=== PATIENT | female | born 1955 | race Caucasian/White ===

== ENCOUNTER 2017-05-14 18:36 | Observation (INO) | payer OTHER ==
[~2017-05-14] VITALS: Ht 152.4 cm; Wt 75.0 kg
[~2017-05-14 18:36] MED LIST: CALC1TAB26 PO; LORA0.5T PO; TAB-TAB PO
[2017-05-14 18:44] VITALS: BP 153/70; PULSE 74; RESP 18; TEMP 98; O2SAT 99
--- NOTE | 2017-05-14 18:44 | PD ---
HPI Chief Complaint: Pre-Syncopal symptoms. Time Seen by Provider: 18:40 Travel History International Travel<30 days: No Contact w/Intl Traveler<30days: No History of Present Illness HPI Patient is a 62-year-old female presents emergency department for evaluation of what her son describes as presyncopal like symptoms. Denies approximately an hour prior to presentation she was sitting down to dinner with her son when she suddenly states she had a warm feeling in her epigastric region no shortness of breath no chest pain and discomfort in by an episode of diaphoresis and her eyes fluttered and she very nearly if not didn't pass out. Her son who is an ER nurse here stated that he thought she might of had a TIA but did not see any focalized weakness in his mother. He states that by the time they arrived here she is doing better. Extensive family history of heart disease but none in this patient, has history of high blood pressure cholesterol but does not smoke. Symptoms started approximately an hour prior to arrival and/or resolved. PFSH Past Medical History Heart Rhythm Problems: No Cancer: Yes (R BREAST CA, BRAC +, JENSEN MASTECTOMY) Cardiac Catheterization: No Cardiovascular Problems: No High Cholesterol: No Congestive Heart Failure: No Diabetes: No Endocrine: No Genitourinary: No Hepatitis: No Hiatal Hernia: Yes Hypertension: No Immune Disorder: No Musculoskeletal: No Neurologic: No Psychiatric: No Reproductive: No Respiratory: Yes (HX OF ASTHMA (CHILD & ADOLES) ) Myocardial Infarction: No Thyroid Disease: No Menopausal: Yes Past Surgical History Abdominal Surgery: No AICD: No Body Medical Devices: R BREAST IMPLANT Cardiac Surgery: No Coronary Artery Bypass Graft: No Ear Surgery: No Endocrine Surgery: No Eye Surgery: No Genitourinary Surgery: No Gynecologic Surgery: Yes (BILATERAL SALPINO OPHORECTOMY ) Joint Replacement: No Oral Surgery: Yes (TONSILLECTOMY) Pacemaker: No Thoracic Surgery: Yes (BILATERAL MASTECTOMIES 2008, JENSEN BREAST RECON) Other Surgery: Yes (BUNIONECTOMY;BILAT MASTECTOMY) Social History Alcohol Use: No Tobacco Use: Yes (1/2 TO 1 PPD) Substance Use: No Allergies-Medications (Allergen,Severity, Reaction): Coded Allergies: No Known Allergies (Verified , 05/14/17) Reported Meds & Prescriptions Reported Meds & Active Scripts Active Reported Lorazepam 0.5 Mg Tab 0.5 Mg PO HSPRN Multivitamin (Multivitamins) 1 Tab Tab 1 Tab PO DAILY Calcium 600+D3 (Calcium Carbonate-Vitamin D) 1 Tab Tab 1 Tab PO BID Review of Systems Except as stated in HPI: all other systems reviewed are Neg Physical Exam Narrative GENERAL: Well-developed well-nourished in no obvious distress SKIN: Focused skin assessment warm/dry. HEAD: Atraumatic. Normocephalic. EYES: Pupils equal and round. No scleral icterus. No injection or drainage. ENT: No nasal bleeding or discharge. Mucous membranes pink and moist. NECK: Trachea midline. No JVD. CARDIOVASCULAR: Regular rate and rhythm. No murmur appreciated. 2+ bilateral equal pulses in all 4 extremity's. RESPIRATORY: No accessory muscle use. Clear to auscultation. Breath sounds equal bilaterally. GASTROINTESTINAL: Abdomen soft, non-tender, nondistended. Hepatic and splenic margins not palpable. MUSCULOSKELETAL: No obvious deformities. No clubbing. No cyanosis. No edema. NEUROLOGICAL: Awake and alert and oriented, cranial nerves II through XII are grossly intact and nonfocal, 5 out of 5 strength in all 4 extremities. No pronator drift. No slurred speech. PSYCHIATRIC: Appropriate mood and affect; insight and judgment normal. Data Data Last Documented VS Vital Signs Date Time Temp Pulse Resp B/P (MAP) Pulse Ox O2 Delivery O2 Flow Rate FiO2 05/14/17 19:20 71 18 133/69 (90) 98 Room Air 05/14/17 18:44 98.0 Orders Orders Electrocardiogram (05/14/17 18:40) Complete Blood Count With Diff (05/14/17 18:40) Comprehensive Metabolic Panel (05/14/17 18:40) Magnesium (Mg) (05/14/17 18:40) Ckmb (Isoenzyme) Profile (05/14/17 18:40) Troponin I (05/14/17 18:40) Act Partial Throm Time (Ptt) (05/14/17 18:40) Prothrombin Time / Inr (Pt) (05/14/17 18:40) Urinalysis - C+S If Indicated (05/14/17 18:40) Chest, Single Ap (05/14/17 18:40) Ct Brain W/O Iv Contrast(Rout) (05/14/17 18:40) Ecg Monitoring (05/14/17 18:40) Iv Access Insert/Monitor (05/14/17 18:40) Oximetry (05/14/17 18:40) Sodium Chloride 0.9% Flush (Ns Flush) (05/14/17 18:45) Ct Pulmonary Angiogram (05/14/17 19:31) Urine Culture (05/14/17 19:01) Iohexol 350 Inj (Omnipaque 350 Inj) (05/14/17 20:23) Labs Laboratory Tests Test 05/14/17 18:46 05/14/17 19:01 White Blood Count 11.8 TH/MM3 Red Blood Count 4.80 MIL/MM3 Hemoglobin 13.9 GM/DL Hematocrit 41.6 % Mean Corpuscular Volume 86.7 FL Mean Corpuscular Hemoglobin 28.9 PG Mean Corpuscular Hemoglobin Concent 33.3 % Red Cell Distribution Width 14.2 % Platelet Count 283 TH/MM3 Mean Platelet Volume 8.7 FL Neutrophils (%) (Auto) 54.3 % Lymphocytes (%) (Auto) 39.2 % Monocytes (%) (Auto) 4.2 % Eosinophils (%) (Auto) 1.8 % Basophils (%) (Auto) 0.5 % Neutrophils # (Auto) 6.4 TH/MM3 Lymphocytes # (Auto) 4.6 TH/MM3 Monocytes # (Auto) 0.5 TH/MM3 Eosinophils # (Auto) 0.2 TH/MM3 Basophils # (Auto) 0.1 TH/MM3 CBC Comment DIFF FINAL Differential Comment Prothrombin Time 11.1 SEC Prothromb Time International Ratio 1.0 RATIO Activated Partial Thromboplast Time 25.8 SEC Blood Urea Nitrogen 12 MG/DL Creatinine 1.08 MG/DL Random Glucose 193 MG/DL Total Protein 6.8 GM/DL Albumin 3.6 GM/DL Calcium Level 9.1 MG/DL Magnesium Level 1.8 MG/DL Alkaline Phosphatase 81 U/L Aspartate Amino Transf (AST/SGOT) 12 U/L Alanine Aminotransferase (ALT/SGPT) 20 U/L Total Bilirubin 0.3 MG/DL Sodium Level 136 MEQ/L Potassium Level 3.6 MEQ/L Chloride Level 101 MEQ/L Carbon Dioxide Level 25.2 MEQ/L Anion Gap 10 MEQ/L Estimat Glomerular Filtration Rate 52 ML/MIN Total Creatine Kinase 49 U/L Troponin I LESS THAN 0.02 NG/ML Urine Color YELLOW Urine Turbidity HAZY Urine pH 6.0 Urine Specific [place] 1.023 Urine Protein TRACE mg/dL Urine Glucose (UA) NEG mg/dL Urine Ketones NEG mg/dL Urine Occult Blood NEG Urine Nitrite NEG Urine Bilirubin NEG Urine Urobilinogen 2.0 MG/DL Urine Leukocyte Esterase SMALL Urine RBC 4 /hpf Urine WBC 9 /hpf Urine Squamous Epithelial Cells 4 /hpf Urine Amorphous Sediment RARE Urine Bacteria OCC /hpf Urine Hyaline Casts 13 /lpf Urine Mucus MOD /lpf Microscopic Urinalysis Comment CULTURE INDICATED MDM Medical Decision Making Medical Screen Exam Complete: Yes Emergency Medical Condition: Yes Differential Diagnosis Syncopal episode, TIA seems unlikely, lecture led abnormality, ACS, CA. Narrative Course Patient roomed at the end of my shift, at 1900 the patient was discussed with Dr. Mahoney my relief who will follow-up the workup and disposition the patient properly. Diagnosis Primary Impression: Near syncope Alexei Mcmanus MD May 14, 2017 18:44
[2017-05-14] MEDS ORDERED: SODIUM CHLORIDE 0.9% FLUSH 10 ML FLUSH IVF PRN (18:45)
[2017-05-14 18:51] VITALS: O2SAT 98
--- NOTE | 2017-05-14 19:08 | RADRPT ---
EXAM DATE/TIME: 05/14/2017 18:42 [facility] COMPARISON: CHEST PA & LAT, January 01, 2013, 11:13. INDICATIONS : Palpitations. MEDICAL HISTORY : Carcinoma, breast. Hiatal hernia. SURGICAL HISTORY : Mastectomy, bilateral. ENCOUNTER: Initial ACUITY: 1 day PAIN SCORE: 0/10 LOCATION: Bilateral chest FINDINGS: Portable AP view of the chest demonstrates a normal-sized cardiac silhouette. No effusion, consolidat ion, or pneumothorax is identified. Left breast shadow is absent. Multiple clips overlie the right ax illa. Bones and soft tissues demonstrate no acute finding. CONCLUSION: No acute cardiopulmonary abnormality is identified. King Yoo MD on May 14, 2017 at 19:06 Board Certified Radiologist. This report was verified electronically.
[2017-05-14 19:15] LABS: AUTOMATED NEUTROPHIL # 6.4 TH/MM3 (1.8-7.7); BASOPHIL # 0.1 TH/MM3 (0-0.2); BASOPHIL % 0.5 % (0.0-2.0); EOSINOPHIL # 0.2 TH/MM3 (0-0.4); EOSINOPHIL % 1.8 % (0.0-4.0); HEMATOCRIT 41.6 % (35.0-46.0); HEMO FLAGS DIFF FINAL; LYMPH % 39.2 % (9.0-44.0); LYMPHOCYTE # 4.6 TH/MM3 (1.0-4.8); MEAN CELL VOLUME 86.7 FL (80.0-100.0); MEAN CORPUSCULAR HEMOGLOBIN 28.9 PG (27.0-34.0); MEAN CORPUSCULAR HGB CONC 33.3 % (32.0-36.0); MONO % 4.2 % (0.0-8.0); NEUT % 54.3 % (16.0-70.0); PLATELET COUNT 283 TH/MM3 (150-450); RED CELL DISTRIBUTION WIDTH 14.2 % (11.6-17.2); WHITE BLOOD COUNT 11.8 TH/MM3 (4.0-11.0)
[2017-05-14 19:20] VITALS: BP 133/69; PULSE 71; RESP 18; O2SAT 98
--- NOTE | 2017-05-14 19:30 | PD ---
Physical Exam Date Seen by Provider: May 14, 2017 Narrative GENERAL: SKIN: Warm and dry. HEAD: Atraumatic. Normocephalic. EYES: Pupils equal and round. No scleral icterus. No injection or drainage. ENT: No nasal bleeding or discharge. Mucous membranes pink and moist. NECK: Trachea midline. No JVD. CARDIOVASCULAR: Regular rate and rhythm. RESPIRATORY: No accessory muscle use. Clear to auscultation. Breath sounds equal bilaterally. GASTROINTESTINAL: Abdomen soft, non-tender, nondistended. MUSCULOSKELETAL: Extremities without clubbing, cyanosis, or edema. No obvious deformities. NEUROLOGICAL: Awake and alert. No obvious cranial nerve deficits. Motor grossly within normal limits. Five out of 5 muscle strength in the arms and legs. Normal speech. PSYCHIATRIC: Appropriate mood and affect; insight and judgment normal. Data Data Last Documented VS Vital Signs Date Time Temp Pulse Resp B/P (MAP) Pulse Ox O2 Delivery O2 Flow Rate FiO2 05/14/17 20:37 65 18 126/69 (88) 97 Room Air 05/14/17 18:44 98.0 Orders Orders Electrocardiogram (05/14/17 18:40) Complete Blood Count With Diff (05/14/17 18:40) Comprehensive Metabolic Panel (05/14/17 18:40) Magnesium (Mg) (05/14/17 18:40) Ckmb (Isoenzyme) Profile (05/14/17 18:40) Troponin I (05/14/17 18:40) Act Partial Throm Time (Ptt) (05/14/17 18:40) Prothrombin Time / Inr (Pt) (05/14/17 18:40) Urinalysis - C+S If Indicated (05/14/17 18:40) Chest, Single Ap (05/14/17 18:40) Ct Brain W/O Iv Contrast(Rout) (05/14/17 18:40) Ecg Monitoring (05/14/17 18:40) Iv Access Insert/Monitor (05/14/17 18:40) Oximetry (05/14/17 18:40) Sodium Chloride 0.9% Flush (Ns Flush) (05/14/17 18:45) Ct Pulmonary Angiogram (05/14/17 19:31) Urine Culture (05/14/17 19:01) Iohexol 350 Inj (Omnipaque 350 Inj) (05/14/17 20:23) Labs Laboratory Tests Test 05/14/17 18:46 05/14/17 19:01 White Blood Count 11.8 TH/MM3 Red Blood Count 4.80 MIL/MM3 Hemoglobin 13.9 GM/DL Hematocrit 41.6 % Mean Corpuscular Volume 86.7 FL Mean Corpuscular Hemoglobin 28.9 PG Mean Corpuscular Hemoglobin Concent 33.3 % Red Cell Distribution Width 14.2 % Platelet Count 283 TH/MM3 Mean Platelet Volume 8.7 FL Neutrophils (%) (Auto) 54.3 % Lymphocytes (%) (Auto) 39.2 % Monocytes (%) (Auto) 4.2 % Eosinophils (%) (Auto) 1.8 % Basophils (%) (Auto) 0.5 % Neutrophils # (Auto) 6.4 TH/MM3 Lymphocytes # (Auto) 4.6 TH/MM3 Monocytes # (Auto) 0.5 TH/MM3 Eosinophils # (Auto) 0.2 TH/MM3 Basophils # (Auto) 0.1 TH/MM3 CBC Comment DIFF FINAL Differential Comment Prothrombin Time 11.1 SEC Prothromb Time International Ratio 1.0 RATIO Activated Partial Thromboplast Time 25.8 SEC Blood Urea Nitrogen 12 MG/DL Creatinine 1.08 MG/DL Random Glucose 193 MG/DL Total Protein 6.8 GM/DL Albumin 3.6 GM/DL Calcium Level 9.1 MG/DL Magnesium Level 1.8 MG/DL Alkaline Phosphatase 81 U/L Aspartate Amino Transf (AST/SGOT) 12 U/L Alanine Aminotransferase (ALT/SGPT) 20 U/L Total Bilirubin 0.3 MG/DL Sodium Level 136 MEQ/L Potassium Level 3.6 MEQ/L Chloride Level 101 MEQ/L Carbon Dioxide Level 25.2 MEQ/L Anion Gap 10 MEQ/L Estimat Glomerular Filtration Rate 52 ML/MIN Total Creatine Kinase 49 U/L Troponin I LESS THAN 0.02 NG/ML Urine Color YELLOW Urine Turbidity HAZY Urine pH 6.0 Urine Specific [place] 1.023 Urine Protein TRACE mg/dL Urine Glucose (UA) NEG mg/dL Urine Ketones NEG mg/dL Urine Occult Blood NEG Urine Nitrite NEG Urine Bilirubin NEG Urine Urobilinogen 2.0 MG/DL Urine Leukocyte Esterase SMALL Urine RBC 4 /hpf Urine WBC 9 /hpf Urine Squamous Epithelial Cells 4 /hpf Urine Amorphous Sediment RARE Urine Bacteria OCC /hpf Urine Hyaline Casts 13 /lpf Urine Mucus MOD /lpf Microscopic Urinalysis Comment CULTURE INDICATED MDM Medical Record Reviewed: Yes Supervised Visit with [facility]: No Interpretation(s) nsr, 75, nl intervals, no stemi pattern, however some leads showed low voltage but no eletrical alternans. for sake of completeness will perform ct chest r/o pe vs pericardial effusion Differential Diagnosis near syncope v tia v pe v pericardial effusion v nonstemi v stemi Narrative Course ct chest neg for pe or pericardial effusion, ct head shows a lucency on skull bone, will share with admitting service Diagnosis Primary Impression: Near syncope Additional Impression: r/o atypical mi Admitting Information Admitting Physician Requests: Bautista Roth MD May 14, 2017 19:30
[2017-05-14 19:31] LABS: BACTERIA, URINE OCC /hpf; BLOOD, URINE NEG (NEG); COMMENT (UR) CULTURE INDICATED; CULTURE IF INDICATED CULTURE INDICATED; GLUCOSE,URINE NEG (NEG); HYALINE CAST, URINE 13 /lpf (RARE); KETONE, URINE NEG (NEG); MUCUS URINE MOD /lpf (OCC); NITRITE,URINE NEG (NEG); SQUAMOUS EPITHELIAL CELL URINE 4 /hpf (0-5); URINE COLOR YELLOW (YELLW/STRAW)
[2017-05-14 19:34] LABS: ANION GAP 10 MEQ/L (5-15); AST (GOT) 12 U/L (15-37); BICARBONATE 25.2 MEQ/L (21.0-32.0); BLOOD UREA NITROGEN 12 MG/DL (7-18); CHLORIDE 101 MEQ/L (98-107); GLOMERULAR FILTRATION RATE 52 ML/MIN (>89); MAGNESIUM 1.8 MG/DL (1.5-2.5); POTASSIUM 3.6 MEQ/L (3.5-5.1); SODIUM (NA) 136 MEQ/L (136-145)
[2017-05-14 19:35] LABS: APTT (PATIENT) 25.8 SEC (24.3-30.1); PROTHROMBIN TIME - PATIENT 11.1 SEC (9.8-11.6)
[2017-05-14 19:36] LABS: ALT (GPT) 20 U/L (10-53)
[2017-05-14 19:39] LABS: ALKALINE PHOSPHATASE 81 U/L (45-117); TOTAL BILIRUBIN ADULT 0.3 MG/DL (0.2-1.0)
[2017-05-14 19:45] LABS: CREATINE KINASE 49 U/L (26-192)
[2017-05-14] MEDS ORDERED: IOHEXOL 350 MG/ML 10 ML VIAL (for RAD DIAG) IVCONTRAST ONE (20:23)
--- NOTE | 2017-05-14 20:25 | RADRPT ---
EXAM DATE/TIME: 05/14/2017 20:14 [facility] COMPARISON: No previous studies available for comparison. INDICATIONS : Dizziness. RADIATION DOSE: 48.92 CTDIvol (mGy) MEDICAL HISTORY : Carcinoma, breast. SURGICAL HISTORY : Mastectomy, bilateral. ENCOUNTER: Initial ACUITY: 1 day PAIN SCALE: 0/10 LOCATION: Bilateral head TECHNIQUE: Multiple contiguous axial images were obtained of the head. Using automated exposure control and adj ustment of the mA and/or kV according to patient size, radiation dose was kept as low as reasonably a chievable to obtain optimal diagnostic quality images. DICOM format image data is available electro nically for review and comparison. FINDINGS: CEREBRUM: The ventricles are normal. No evidence of midline shift, mass lesion, hemorrhage or acute infarction . No extra-axial fluid collections are seen. POSTERIOR FOSSA: The cerebellum and brainstem demonstrate no acute finding. The 4th ventricle is midline. The cerebe llopontine angle is unremarkable. EXTRACRANIAL: Visualized sinuses are clear. SKULL: There is a 15 mm lucent lesion in the right parietal bone at the high convexity. No other bone lesion is seen. No evidence of skull fracture. CONCLUSION: 1. No acute intracranial abnormality is identified. 2. There is a 15 mm lucent lesion in the right parietal bone at the high convexity. No other bone les ion is visualized. Suggest correlating with any outside imaging studies echo confirm chronicity of th is finding. If none are available, suggest outpatient elective whole-body bone scan for further evalu ation. It is possible this represents a benign process such as a large venous chew but it could repre sent a metastatic lesion given history of breast cancer or even myeloma. King Yoo MD on May 14, 2017 at 20:19 Board Certified Radiologist. This report was verified electronically.
[2017-05-14 20:37] VITALS: BP 126/69; PULSE 65; RESP 18; O2SAT 97
--- NOTE | 2017-05-14 20:37 | RADRPT ---
EXAM DATE/TIME: 05/14/2017 20:19 [facility] COMPARISON: No previous studies available for comparison. INDICATIONS : Shortness of breath. IV CONTRAST: 74 cc Omnipaque 350 (iohexol) IV RADIATION DOSE: 23.09 CTDIvol (mGy) MEDICAL HISTORY : Carcinoma, breast. SURGICAL HISTORY : Mastectomy, bilateral. ENCOUNTER: Initial ACUITY: 1 day PAIN SCALE: 0/10 LOCATION: Bilateral chest TECHNIQUE: Volumetric scanning of the chest was performed using a pulmonary embolism protocol MIP images were re constructed. Using automated exposure control and adjustment of the mA and/or kV according to patien t size, radiation dose was kept as low as reasonably achievable to obtain optimal diagnostic quality images. DICOM format image data is available electronically for review and comparison. Follow-up recommendations for detected pulmonary nodules are based at a minimum on nodule size and pa tient risk factors according to Fleischner Society Guidelines. FINDINGS: There is respiratory motion artifact. PULMONARY ARTERIES: No filling defects are seen in the pulmonary arteries through most of the segmental level pulmonary a rteries. LUNGS: There is a mild to moderate centrilobular emphysema. Focal area of cylindrical bronchiectasis is pres ent in the medial right lower lobe. No effusion, consolidation, or pneumothorax. PLEURAE: There is no pleural thickening or pleural effusion. MEDIASTINUM: Heart and great vessels demonstrate no acute finding. There is moderate atherosclerotic disease of th e aorta. There are small hilar lymph nodes bilaterally that are not enlarged by size criteria. MUSCULOSKELETAL: There are degenerative changes of the thoracic spine. No lytic or blastic lesion is seen. MISCELLANEOUS: A unilateral right breast implant is present. Patient is post left mastectomy. There is no axillary l ymphadenopathy. There numerable surgical clips in the right axilla. There is an exophytic nodule vers us inferior extension of the right lobe of the thyroid gland. A 7 and 8 mm low-density lesion is pres ent within the right lobe of the liver. Density measurements are not consistent with cysts. CONCLUSION: 1. Examination quality degraded by respiratory motion artifact. However, no PE is identified. 2. There are 2 low-density lesions in the right liver that are too small to characterize. Prior CT re ported liver lesions. 3. Nonacute findings include moderate emphysema and moderate atherosclerotic disease. King Yoo MD on May 14, 2017 at 20:30 Board Certified Radiologist. This report was verified electronically.
[2017-05-14 22:57] VITALS: BP 125/74; PULSE 88; RESP 18; O2SAT 99
[2017-05-15] VITALS (10 sets, daily range): BP systolic 118–150; BP diastolic 55–80; PULSE 61–80; RESP 16–18; TEMP 97.6–98.1; O2SAT 96–97
[2017-05-15] MEDS ORDERED: SODIUM CHLOR 0.9% 1000 ML INJ 1,000 ML IV SCH (00:15)
[2017-05-15] MEDS ORDERED: ONDANSETRON HCL 4 MG/2 ML VIAL IVP PRN (00:15)
[2017-05-15] MEDS ORDERED: TEMAZEPAM 15 MG CAP PO PRN (00:15)
[2017-05-15] MEDS ORDERED: ACETAMINOPHEN 325 MG TAB PO PRN (00:15)
[2017-05-15] MEDS ORDERED: NALOXONE HCL 0.4 MG/ML AMP IV PUSH PRN (00:15)
[2017-05-15] MEDS ORDERED: SODIUM CHLORIDE 0.9% FLUSH 10 ML FLUSH IV FLUSH PRN (00:15)
--- NOTE | 2017-05-15 03:59 | HHI.HP ---
HPI Service [facility] Primary Care Physician Ria Valerio MD Admission Diagnosis NEARSYNCOPE, R/O ATYPICAL [place], SKULL LUCENCY Diagnoses: Chief Complaint: Near syncope Travel History International Travel<30 Days: No Contact w/Intl Traveler <30 Da: No Traveled to Known Affected Are: No History of Present Illness Patient seen around 1 AM. Pleasant 62-year-old female with a medical history significant for breast cancer brought into the emergency room after near syncopal episode. The patient and her son reports the sat down on a bench for dinner. The bench almost tipped over which startled them. A few minutes later the patient started having a burning feeling in the epigastric region and became diaphoretic , nauseous, nearly passed out. Her son is a nurse in the emergency room. He did not notice any focal neurological deficits at the time. By the time the patient arrived in the emergency room, she was feeling better. On my evaluation , she reports feeling back to her baseline. Workup so far in the emergency room indicate some renal insufficiency and the head CT showed a lucency in the parietal region. Otherwise workup is unremarkable. Review of Systems Constitutional: DENIES: Fever, Chills Respiratory: DENIES: Shortness of breath Cardiovascular: DENIES: Chest pain, Palpitations Gastrointestinal: COMPLAINS OF: Nausea Except as stated in HPI: all other systems reviewed are Neg Past Family Social History Past Medical History Breast cancer status post bilateral mastectomy Past Surgical History Bilateral mastectomy Breast implant Salpingo-oophorectomy Reported Medications Reported Meds & Active Scripts Active Reported Lorazepam 0.5 Mg Tab 0.5 Mg PO HSPRN Multivitamin (Multivitamins) 1 Tab Tab 1 Tab PO DAILY Calcium 600+D3 (Calcium Carbonate-Vitamin D) 1 Tab Tab 1 Tab PO BID Allergies: Coded Allergies: No Known Allergies (Verified , 05/14/17) Family History 2 older brothers from [place] in the 50s. Mother with history of heart attacks Sister with history of breast cancer Social History Patient is a lifelong smoker, 1 pack per day. Occasional alcohol, she denies illicit drugs. Physical Exam Vital Signs Vital Signs Date Time Temp Pulse Resp B/P (MAP) Pulse Ox O2 Delivery O2 Flow Rate FiO2 05/15/17 01:32 97.8 65 18 130/78 (95) 97 05/15/17 00:59 05/14/17 22:57 88 18 125/74 (91) 99 Room Air 05/14/17 20:37 65 18 126/69 (88) 97 Room Air 05/14/17 19:20 71 18 133/69 (90) 98 Room Air 05/14/17 18:51 98 Room Air 05/14/17 18:51 81 18 98 Room Air 05/14/17 18:44 98.0 74 18 153/70 (97) 99 Physical Exam GENERAL: This is a well-nourished, well-developed patient, in no apparent distress. SKIN: No rashes, ecchymoses or lesions. Cool and dry. HEAD: Atraumatic. Normocephalic. No temporal or scalp tenderness. EYES: Pupils equal round and reactive. Extraocular motions intact. No scleral icterus. No injection or drainage. ENT: Nose without bleeding, purulent drainage or septal hematoma. Throat without erythema, tonsillar hypertrophy or exudate. Uvula midline. Airway patent. NECK: Trachea midline. No JVD or lymphadenopathy. Supple, nontender, no meningeal signs. CARDIOVASCULAR: Regular rate and rhythm without murmurs, gallops, or rubs. RESPIRATORY: Clear to auscultation. Breath sounds equal bilaterally. No wheezes , rales, or rhonchi. GASTROINTESTINAL: Abdomen soft, non-tender, nondistended. No hepato-splenomegaly , or palpable masses. No guarding. MUSCULOSKELETAL: Extremities without clubbing, cyanosis, or edema. No joint tenderness, effusion, or edema noted. No calf tenderness. Negative Homans sign bilaterally. NEUROLOGICAL: Awake and alert. Cranial nerves II through XII intact. Motor and sensory grossly within normal limits. Five out of 5 muscle strength in all muscle groups. Normal speech. Laboratory Laboratory Tests Test 05/14/17 18:46 05/14/17 19:01 05/15/17 01:16 White Blood Count 11.8 Red Blood Count 4.80 Hemoglobin 13.9 Hematocrit 41.6 Mean Corpuscular Volume 86.7 Mean Corpuscular Hemoglobin 28.9 Mean Corpuscular Hemoglobin Concent 33.3 Red Cell Distribution Width 14.2 Platelet Count 283 Mean Platelet Volume 8.7 Neutrophils (%) (Auto) 54.3 Lymphocytes (%) (Auto) 39.2 Monocytes (%) (Auto) 4.2 Eosinophils (%) (Auto) 1.8 Basophils (%) (Auto) 0.5 Neutrophils # (Auto) 6.4 Lymphocytes # (Auto) 4.6 Monocytes # (Auto) 0.5 Eosinophils # (Auto) 0.2 Basophils # (Auto) 0.1 CBC Comment DIFF FINAL Differential Comment Prothrombin Time 11.1 Prothromb Time International Ratio 1.0 Activated Partial Thromboplast Time 25.8 Blood Urea Nitrogen 12 Creatinine 1.08 Random Glucose 193 Total Protein 6.8 Albumin 3.6 Calcium Level 9.1 Magnesium Level 1.8 Alkaline Phosphatase 81 Aspartate Amino Transf (AST/SGOT) 12 Alanine Aminotransferase (ALT/SGPT) 20 Total Bilirubin 0.3 Sodium Level 136 Potassium Level 3.6 Chloride Level 101 Carbon Dioxide Level 25.2 Anion Gap 10 Estimat Glomerular Filtration Rate 52 Total Creatine Kinase 49 Troponin I LESS THAN 0.02 LESS THAN 0.02 Urine Color YELLOW Urine Turbidity HAZY Urine pH 6.0 Urine Specific [place] 1.023 Urine Protein TRACE Urine Glucose (UA) NEG Urine Ketones NEG Urine Occult Blood NEG Urine Nitrite NEG Urine Bilirubin NEG Urine Urobilinogen 2.0 Urine Leukocyte Esterase SMALL Urine RBC 4 Urine WBC 9 Urine Squamous Epithelial Cells 4 Urine Amorphous Sediment RARE Urine Bacteria OCC Urine Hyaline Casts 13 Urine Mucus MOD Microscopic Urinalysis Comment CULTURE INDICATED Date/Time Source Procedure Growth Status 05/14/17 19:01 Urine Random Urine Urine Culture Pending Received Result Diagram: 05/14/17184505/14/171845 Imaging Last Impressions CT Angiography 05/14/17 193 Signed Impressions: Service Date/Time: Sunday, May 14, 2017 20:19 - CONCLUSION: 1. Examination quality degraded by respiratory motion artifact. However, no PE is identified. 2. There are 2 low-density lesions in the right liver that are too small to characterize. Prior CT reported liver lesions. 3. Nonacute findings include moderate emphysema and moderate atherosclerotic disease. King Yoo MD Head CT 05/14/17 1840 Signed Impressions: Service Date/Time: Sunday, May 14, 2017 20:14 - CONCLUSION: 1. No acute intracranial abnormality is identified. 2. There is a 15 mm lucent lesion in the right parietal bone at the high convexity. No other bone lesion is visualized. Suggest correlating with any outside imaging studies echo confirm chronicity of this finding. If none are available, suggest outpatient elective whole-body bone scan for further evaluation. It is possible this represents a benign process such as a large venous chew but it could represent a metastatic lesion given history of breast cancer or even myeloma. King Yoo MD Chest X-Ray 05/14/17 1840 Signed Impressions: Service Date/Time: Sunday, May 14, 2017 18:42 - CONCLUSION: No acute cardiopulmonary abnormality is identified. MD Kole Jefferson VTE Risk Assessment Caprinrajan VTE Risk Assessment: No/Low Risk (score <= 1) Caprini Risk Assessment Model Point Value = 1 Point Value = 2 Point Value = 3 Point Value = 5 Age 41-60 Minor surgery BMI > 25 kg/m2 Swollen legs Varicose veins or History of unexplained or recurrent spontaneous Oral contraceptives or hormone replacement Sepsis (< 1 month) Serious lung disease, including pneumonia (< 1 month) Abnormal pulmonary function Acute myocardial infarction Congestive heart failure (< 1 month) History of inflammatory bowel disease Medical patient at bed rest Age 61-74 Arthroscopic surgery Major open surgery (> 45 min) Laparoscopic surgery (> 45 min) Malignancy Confined to bed (> 72 hours) Immobilizing plaster cast Central venous access Age >= 75 History of VTE Family history of VTE Factor V Leiden Prothrombin [id number] Lupus anticoagulant Anticardiolipin antibodies Elevated serum homocysteine Heparin-induced thrombocytopenia Other congenital or acquired thrombophilia Stroke (< 1 month) Elective arthroplasty Hip, pelvis, or leg fracture Acute spinal cord injury (< 1 month) Prophylaxis Regimen Total Risk Factor Score Risk Level Prophylaxis Regimen 0-1 Low Early ambulation 2 Moderate Order ONE of the following: *Sequential Compression Device (SCD) *Heparin 5000 units SQ BID 3-4 Higher Order ONE of the following medications: *Heparin 5000 units SQ TID *Enoxaparin/Lovenox 40 mg SQ daily (WT < 150 kg, CrCl > 30 mL/min) *Enoxaparin/Lovenox 30 mg SQ daily (WT < 150 kg, CrCl > 10-29 mL/min) *Enoxaparin/Lovenox 30 mg SQ BID (WT < 150 kg, CrCl > 30 mL/min) AND/OR *Sequential Compression Device (SCD) 5 or more Highest Order ONE of the following medications: *Heparin 5000 units SQ TID (Preferred with Epidurals) *Enoxaparin/Lovenox 40 mg SQ daily (WT < 150 kg, CrCl > 30 mL/min) *Enoxaparin/Lovenox 30 mg SQ daily (WT < 150 kg, CrCl > 10-29 mL/min) *Enoxaparin/Lovenox 30 mg SQ BID (WT < 150 kg, CrCl > 30 mL/min) AND *Sequential Compression Device (SCD) Assessment and Plan Problem List: (1) Near syncope ICD Code: R55 - Syncope and collapse Status: Acute Plan: I believe this was more of a vasovagal event. She is a smoker and does have a significant family history of heart disease. Given the lack of symptoms , will do a limited workup Obtain serial cardiac enzymes and EKG. Monitor on telemetry for arrhythmias. - Hydrated with IV fluid. Encourage oral intake. - Obtain orthostatic vital signs. (2) Abnormal CT scan of head ICD Code: R93.0 - Abnormal findings on diagnostic imaging of skull and head, not elsewhere classified Plan: Head CT revealed a 15 mm lucent lesion in the right parietal bone at the high convexity. Patient does not recall any previous abnormality on head imaging. I discussed this finding at length with the patient and her son. Given her history of breast cancer I advised him to follow-up with the oncologist and primary care physician in order to obtain further studies such as whole body bone scan or PET scan to rule out metastatic disease. (3) Tobacco abuse ICD Code: Z72.0 - Tobacco use Plan: The patient was counseled to quit. Assessment and Plan If workup unremarkable, the patient can be discharge in the morning. Discussed Condition With Stuart Girard MD May 15, 2017 03:59
[2017-05-15 08:52] LABS: ANION GAP 6 MEQ/L (5-15); BICARBONATE 28.3 MEQ/L (21.0-32.0); BLOOD UREA NITROGEN 10 MG/DL (7-18); CHLORIDE 108 MEQ/L (98-107); GLOMERULAR FILTRATION RATE 96 ML/MIN (>89); POTASSIUM 3.8 MEQ/L (3.5-5.1); SODIUM (NA) 142 MEQ/L (136-145)
[2017-05-15] MEDS: SODIUM CHLORIDE 0.9% FLUSH 10 ML FLUSH IV FLUSH SCH ×2 (09:20→20:22)
--- NOTE | 2017-05-15 12:07 | HHI.PR ---
Subjective Remarks Follow up for syncope. The patient reports feeling much better today. She denies any lightheadedness, dizziness, headache, visual changes, chest pain, palpitations, or shortness of breath. She does admit over the past few months she has noticed some imbalance issues, worse with position changes such as sitting down on a chair or turning corners when walking. She thought this was just because she was getting older after turning 62. She has adjusted her lifestyle including slow transition changes to cope with her symptoms. She has no other medical complaints at this time. Objective Vitals Vital Signs Date Time Temp Pulse Resp B/P (MAP) Pulse Ox O2 Delivery O2 Flow Rate FiO2 05/15/17 08:08 98.0 61 16 118/55 (76) 97 05/15/17 05:59 63 05/15/17 01:32 97.8 65 18 130/78 (95) 97 05/15/17 00:59 05/14/17 22:57 88 18 125/74 (91) 99 Room Air 05/14/17 20:37 65 18 126/69 (88) 97 Room Air 05/14/17 19:20 71 18 133/69 (90) 98 Room Air 05/14/17 18:51 98 Room Air 05/14/17 18:51 81 18 98 Room Air 05/14/17 18:44 98.0 74 18 153/70 (97) 99 Result Diagram: 05/14/176 05/15/[address] Angiography 05/14/17 193 Signed Impressions: Service Date/Time: Sunday, May 14, 2017 20:19 - CONCLUSION: 1. Examination quality degraded by respiratory motion artifact. However, no PE is identified. 2. There are 2 low-density lesions in the right liver that are too small to characterize. Prior CT reported liver lesions. 3. Nonacute findings include moderate emphysema and moderate atherosclerotic disease. King Yoo MD Head CT 05/14/17 1840 Signed Impressions: Service Date/Time: Sunday, May 14, 2017 20:14 - CONCLUSION: 1. No acute intracranial abnormality is identified. 2. There is a 15 mm lucent lesion in the right parietal bone at the high convexity. No other bone lesion is visualized. Suggest correlating with any outside imaging studies echo confirm chronicity of this finding. If none are available, suggest outpatient elective whole-body bone scan for further evaluation. It is possible this represents a benign process such as a large venous chew but it could represent a metastatic lesion given history of breast cancer or even myeloma. King Yoo MD Chest X-Ray 05/14/17 1840 Signed Impressions: Service Date/Time: Sunday, May 14, 2017 18:42 - CONCLUSION: No acute cardiopulmonary abnormality is identified. King Yoo MD Objective Remarks GENERAL: Well-nourished, well-developed pleasant female patient in NAD. SKIN: Warm and dry. No rash. HEENT: Normocephalic. Atraumatic.Pupils equal and round. Mucous membranes pink and moist. NECK: Supple. Trachea midline. CARDIOVASCULAR: Regular rate and rhythm. S1, S2 noted. No murmur appreciated. RESPIRATORY: No accessory muscle use. Clear to auscultation. Breath sounds equal bilaterally. GASTROINTESTINAL: Abdomen soft, non-tender, nondistended. Normoactive bowel sounds x4. MUSCULOSKELETAL: No obvious deformities. Extremities without clubbing, cyanosis , or edema. NEUROLOGICAL: Awake and alert. No obvious cranial nerve deficits. Motor grossly within normal limits. Normal speech. PSYCHIATRIC: Appropriate mood and affect; insight and judgment normal. Medications and IVs Current Medications Medications (Trade) Dose Ordered Sig/Elliot Route Start Time Stop Time Status Last Admin (NS Flush) 2 ml UNSCH PRN IV FLUSH 05/15/17 00:15 (NS Flush) 2 ml BID IV FLUSH 05/15/17 09:00 (Tylenol) 650 mg Q4H PRN PO 05/15/17 00:15 (Zofran Inj) 4 mg Q6H PRN IVP 05/15/17 00:15 (Restoril) 15 mg HS PRN PO 05/15/17 00:15 (Narcan Inj) 0.4 mg UNSCH PRN IV PUSH 05/15/17 00:15 A/P Problem List: (1) Near syncope ICD Code: R55 - Syncope and collapse Status: Acute (2) Abnormal CT scan of head ICD Code: R93.0 - Abnormal findings on diagnostic imaging of skull and head, not elsewhere classified (3) Tobacco abuse ICD Code: Z72.0 - Tobacco use Assessment and Plan 62-year-old female with history of breast cancer presents with syncopal episode. Syncope: suspect vasovagal in combination with dehydration. She is a smoker and does have a significant family history of heart disease. - ACS ruled out with negative serial cardiac enzymes x3 and EKG without acute ischemic changes - Monitor on telemetry for arrhythmias, no acute findings. - Hydrated with IV fluid. Encourage oral intake. - Orthostatic vitals signs negative however were checked after rehydrated with IVF Abnormal CT scan of head: Head CT images reviewed, revealed a 15 mm lucent lesion in the right parietal bone at the high convexity. Patient does not recall any previous abnormality on head imaging. Findings discussed at length with patient and son. Advised to f/up with PCP and oncologist to consider PET scan vs further imaging. - given symptoms, will consult oncology, known to Dr. Morrison Tobacco abuse: chronic - counseled on cessation Acute Renal Insufficiency: Cr 1.08, previously 0.50 in 2012. Suspect secondary to dehydration. - given IVF - repeat labs show improvement, Cr 0.63 - resolved DVT Prophylaxis: teds/SCDs Discharge Planning Discharge pending evaluation by oncology. Jael Alcantar PA-C May 15, 2017 12:07 pm
--- NOTE | 2017-05-15 12:14 | EKG ---
Date Performed: 05/15/2017 Time Performed: 08:02:05 PTAGE: 62 years EKG: SINUS BRADYCARDIA BORDERLINE ECG Compared to prior tracing no significant change PREVIOUS TRACING : 05/15/2017 00.27 DOCTOR: Madan Lord Interpretating Date/Time 05/15/2017 12:10:41
--- NOTE | 2017-05-15 13:00 | EKG ---
Date Performed: 05/14/2017 Time Performed: 19:08:45 PTAGE: 62 years EKG: Normal Sinus rhythm Suspect incorrect limb lead placement, giving a false right axis deviation Repeat tracing advised PREVIOUS TRACING : 01/01/2013 10.02 DOCTOR: Madan Lord Interpretating Date/Time 05/15/2017 13:51:18
--- NOTE | 2017-05-15 13:00 | EKG ---
Date Performed: 05/15/2017 Time Performed: 00:27:54 PTAGE: 62 years EKG: Sinus rhythm NORMAL ECG INTERPRETATION BASED ON A DEFAULT AGE OF 40 YEARS PREVIOUS TRACING : 05/14/2017 19.08 The prior EKG had incorrect limb lead placement. DOCTOR: Madan Lord Interpretating Date/Time 05/15/2017 13:51:26
--- NOTE | 2017-05-15 21:04 | MB ---
cc: SOUMYA PIERCE M.D. DATE OF CONSULTATION 05/15/[address] Jones REASON FOR CONSULTATION Oncology consulted to render opinion regarding patient with history of breast cancer with suspicious lesion in the skull. HISTORY OF PRESENT ILLNESS The patient is a very pleasant 62-year-old female with history of breast cancer treated about 10 years ago. She presented to the hospital with near syncope. She stated she was in her usual state of health yesterday. She was very hungry and while getting ready to eat dinner she suddenly felt nauseous and diaphoretic. She saw bright lights and said that she passed out. ENT was called and by the time the patient arrived to the emergency room she already felt better. She stated lately she feels unsteady when she gets up too fast. However, she is still working full-time. She denies any constitutional symptoms. Denies any chest pain, palpitation, any shortness of breath or cough. Denies any bone pain. Denies any headache. PAST MEDICAL HISTORY 1. Breast cancer diagnosed in 2006 status post bilateral mastectomy. She was on tamoxifen for about three years. She has not followed up since then. BRCA positive. 2. Chronic obstructive pulmonary disease. 3. Hiatal hernia. PAST SURGICAL HISTORY 1. Bilateral mastectomy with breast implants. 2. Bilateral salpingo-oophorectomy. 3. Tonsillectomy. 4. Skin debridement. 5. Bunionectomy. 6. Pain pump infusion. FAMILY HISTORY Sister had breast cancer. SOCIAL HISTORY Does smoke a pack a day. Drinks occasionally. ALLERGIES No known drug allergies. MEDICATIONS She is only taking multivitamin. REVIEW OF SYSTEMS CONSTITUTIONAL: Negative. EYES: Negative. EARS, NOSE, AND THROAT: Negative. CARDIOVASCULAR: As above. RESPIRATORY: Negative. GASTROINTESTINAL: Negative. GENITOURINARY: Negative. ENDOCRINE: Negative. HEMATOLOGY: Negative. DERMATOLOGIC: Negative. PSYCHIATRIC: Negative. NEUROLOGIC: As above. PHYSICAL EXAMINATION VITAL SIGNS: Temperature 98.1, blood pressure 127/80, O2 saturation 97%. GENERAL: She is alert and oriented times three in no acute distress. HEENT: Atraumatic, normocephalic. Pupils equal, round, reactive to light. Extraocular muscles intact. No scleral icterus. Oropharynx dry mucosa. No lesion. NECK: No thyromegaly. No palpable masses. LYMPHATICS: No palpable cervical, clavicular, axillary, inguinal lymph node. CARDIOVASCULAR: Regular S1-S2. No murmur. LUNGS: Clear to auscultation without wheezing or rhonchi. ABDOMEN: Soft, nontender. I could not palpate liver or spleen. EXTREMITIES: No cyanosis, clubbing or edema. BACK: No paravertebral tenderness. SKIN: No rash or petechiae. NEUROLOGIC: Exam nonfocal. She has no tenderness in her scalp. LABORATORY DATA Reviewed. ASSESSMENT 1. History of breast cancer with positive BRCA mutation. She was treated in 2006. She was on tamoxifen for about 3 years. She did not follow up since then. She had bilateral mastectomy with bilateral salpingo-oophorectomy. She has no constitutional symptoms. There is no clear evidence of recurrent disease at this time. 2. Skull lesion noticed incidentally on CT scan of the head. She has a 15 mm lucent lesion in the right parietal bone at the high convexity. This could be a benign venous chew but cannot rule out metastatic disease. Clinically she has no symptoms. I think we can get a PET scan as an outpatient for further evaluation. 3. Chronic obstructive pulmonary disease, stable. 4. Hiatal hernia. 5. Nonspecific liver lesion. CT of the chest showed two low density lesions in the right hepatic lobe which are too small to characterize. RECOMMENDATIONS Discussion with the patient. There is no oncologic workup necessary during this hospital stay. She can be discharged from oncologic standpoint. I told the patient to follow up at the oncology clinic at [facility] in [facility]. She stated that she will call to make an appointment. Can consider getting a PET scan outpatient for further evaluation. Thank you Dr. Jones for asking me to see this patient. MD LISSA Keys/RICK /8:06 PM /8:46 PM RADHA
[2017-05-16 00:04] VITALS: PULSE 66
[2017-05-16 00:34] VITALS: BP 156/74; PULSE 65; RESP 18; TEMP 97.3; O2SAT 96
[2017-05-16 04:09] VITALS: PULSE 63
[2017-05-16 05:24] VITALS: BP 121/69; PULSE 61; RESP 16; TEMP 97.7; O2SAT 95
--- NOTE | 2017-05-16 07:40 | HHI.DCPOC ---
Discharge Care Plan Diagnosis: (1) Syncope (2) Imbalance (3) Abnormal CT scan of head Goals to Promote Your Health * To prevent worsening of your condition and complications * To maintain your health at the optimal level Directions to Meet Your Goals Take your medications as prescribed Follow your dietary instruction Follow activity as directed Keep your appointments as scheduled Take your immunizations and boosters as scheduled If your symptoms worsen call your PCP, if no PCP go to Urgent Care Center or Emergency Room Smoking is Dangerous to Your Health. Avoid second hand smoke Call the 24-hour hour crisis hotline for domestic abuse at Jael Alcantar PA-C May 16, 2017 07:40
[2017-05-16 07:43] VITALS: BP_SYST 124; BP_SYST 127; BP_SYST 134; BP_DIAS 68; BP_DIAS 69; BP_DIAS 72; PULSE 74; RESP 16; TEMP 97.8; O2SAT 96
--- NOTE | 2017-05-16 08:12 | HHI.PR ---
Subjective Remarks Follow up for syncope, abnormal head CT. The patient reports feeling well today. She is ambulating without difficulty. Denies any headache, lightheadedness, or dizziness. Denies any further near syncopal events. She wants to go home. Objective Vitals Vital Signs Date Time Temp Pulse Resp B/P (MAP) Pulse Ox O2 Delivery O2 Flow Rate FiO2 05/16/17 07:43 97.8 74 16 134/72 (92) 96 127/69 (88) 124/68 (86) 05/16/17 05:24 97.7 61 16 121/69 (86) 95 05/16/17 04:09 63 05/16/17 00:34 97.3 65 18 156/74 (101) 96 05/16/17 00:04 66 05/15/17 20:46 97.6 61 16 129/68 (88) 96 142/73 (96) 150/73 (98) 05/15/17 20:13 80 05/15/17 17:07 98.1 62 16 127/80 (96) 97 05/15/17 15:00 78 05/15/17 13:00 62 05/15/17 12:26 98.0 64 16 129/64 (85) 97 124/67 (86) 141/71 (94) I/O 05/15/17 05/15/17 05/15/17 05/16/17 05/16/17 05/16/17 07:00 15:00 23:00 07:00 15:00 23:00 Intake Total 500 ml Balance 500 ml Intake Oral 500 ml # Voids 4 1 # Bowel Movements 0 1 Result Diagram: 05/14/17184505/15/17 [address] Angiography 05/14/17 193 Signed Impressions: Service Date/Time: Sunday, May 14, 2017 20:19 - CONCLUSION: 1. Examination quality degraded by respiratory motion artifact. However, no PE is identified. 2. There are 2 low-density lesions in the right liver that are too small to characterize. Prior CT reported liver lesions. 3. Nonacute findings include moderate emphysema and moderate atherosclerotic disease. King Yoo MD Head CT 05/14/171839 Signed Impressions: Service Date/Time: Sunday, May 14, 2017 20:14 - CONCLUSION: 1. No acute intracranial abnormality is identified. 2. There is a 15 mm lucent lesion in the right parietal bone at the high convexity. No other bone lesion is visualized. Suggest correlating with any outside imaging studies echo confirm chronicity of this finding. If none are available, suggest outpatient elective whole-body bone scan for further evaluation. It is possible this represents a benign process such as a large venous chew but it could represent a metastatic lesion given history of breast cancer or even myeloma. King Yoo MD Chest X-Ray 05/14/17 7200 Signed Impressions: Service Date/Time: Sunday, May 14, 2017 18:42 - CONCLUSION: No acute cardiopulmonary abnormality is identified. King Yoo MD Objective Remarks GENERAL: Well-nourished, well-developed pleasant female patient in [facility]. SKIN: Warm and dry. No rash. HEENT: Normocephalic. Atraumatic.Pupils equal and round. Mucous membranes pink and moist. CARDIOVASCULAR: Regular rate and rhythm. S1, S2 noted. No murmur appreciated. RESPIRATORY: No accessory muscle use. Clear to auscultation. Breath sounds equal bilaterally. GASTROINTESTINAL: Abdomen soft, non-tender, nondistended. MUSCULOSKELETAL: No obvious deformities. Extremities without clubbing, cyanosis , or edema. NEUROLOGICAL: Awake and alert. No obvious cranial nerve deficits. Motor grossly within normal limits. Normal speech. PSYCHIATRIC: Appropriate mood and affect; insight and judgment normal. Medications and IVs Current Medications Medications (Trade) Dose Ordered Sig/Elliot Route Start Time Stop Time Status Last Admin (NS Flush) 2 ml UNSCH PRN IV FLUSH 05/15/17 00:15 (NS Flush) 2 ml BID IV FLUSH 05/15/17 09:00 05/15/17 20:22 (Tylenol) 650 mg Q4H PRN PO 05/15/17 00:15 05/15/17 12:40 (Zofran Inj) 4 mg Q6H PRN IVP 05/15/17 00:15 (Restoril) 15 mg HS PRN PO 05/15/17 00:15 (Narcan Inj) 0.4 mg UNSCH PRN IV PUSH 05/15/17 00:15 A/P Problem List: (1) Near syncope ICD Code: R55 - Syncope and collapse Status: Acute (2) Abnormal CT scan of head ICD Code: R93.0 - Abnormal findings on diagnostic imaging of skull and head, not elsewhere classified (3) Tobacco abuse ICD Code: Z72.0 - Tobacco use Assessment and Plan 62-year-old female with history of breast cancer presents with syncopal episode. Syncope: suspect vasovagal in combination with dehydration. She is a smoker and does have a significant family history of heart disease. - ACS ruled out with negative serial cardiac enzymes x3 and EKG without acute ischemic changes - Monitor on telemetry for arrhythmias, no acute findings. - Hydrated with IV fluid. Encourage oral intake. - Orthostatic vitals signs negative however were checked after rehydrated with IVF - symptoms resolved Abnormal CT scan of head: Head CT images reviewed, revealed a 15 mm lucent lesion in the right parietal bone at the high convexity. Patient does not recall any previous abnormality on head imaging. Findings discussed at length with patient and son. Advised to f/up with PCP and oncologist to consider PET scan vs further imaging. - consulted oncology, known to Dr. Morrison, recommended outpatient PET scan, cleared for discharge Tobacco abuse: chronic - counseled on cessation Acute Renal Insufficiency: Cr 1.08, previously 0.50 in 2012. Suspect secondary to dehydration. - given IVF - repeat labs show improvement, Cr 0.63 - resolved DVT Prophylaxis: teds/SCDs Discharge Planning Discharge patient to home Condition on discharge: Improved Regular Diet as tolerated Ad Renetta activity Rx written: none. Follow-up with primary care physician and oncology Dr. Morrison within 1 week Outpatient PET scan Jael Alcantar PA-C May 16, 2017 8:12 am
--- NOTE | 2017-05-16 08:15 | PD.ONC.PN ---
Subjective Subjective Remarks No CP/SOB. No headache, eager to go home. Objective Data Date Time Temp Pulse Resp B/P (MAP) Pulse Ox O2 Delivery O2 Flow Rate FiO2 05/16/17 07:43 97.8 74 16 134/72 (92) 96 127/69 (88) 124/68 (86) 05/16/17 05:24 97.7 61 16 121/69 (86) 95 05/16/17 04:09 63 05/16/17 00:34 97.3 65 18 156/74 (101) 96 05/16/17 00:04 66 05/15/17 20:46 97.6 61 16 129/68 (88) 96 142/73 (96) 150/73 (98) 05/15/17 20:13 80 05/15/17 17:07 98.1 62 16 127/80 (96) 97 05/15/17 15:00 78 05/15/17 13:00 62 05/15/17 12:26 98.0 64 16 129/64 (85) 97 124/67 (86) 141/71 (94) 05/16/17 05/16/17 05/16/17 07:00 15:00 23:00 Intake Total 500 ml Balance 500 ml Result Diagram: 05/14/17 1846 05/15/17 0640 Laboratory Results Laboratory Tests Test 05/15/17 10:40 Nasal Screen MRSA (PCR) MRSA NOT DETECTED Culture Results Microbiology Date/Time Source Procedure Growth Status 05/14/17 19:01 Urine Random Urine Urine Culture - Preliminary IMMATURE GROWTH - REINCUBATE Resulted Administered Medications Medications (Trade) Dose Ordered Sig/Elliot Route PRN Reason Start Time Stop Time Status Last Admin Dose Admin Sodium Chloride (NS Flush) 2 ml BID IV FLUSH 05/15/17 09:00 05/15/17 20:22 Acetaminophen (Tylenol) 650 mg Q4H PRN PO TEMP > 100.4 05/15/17 00:15 05/15/17 12:40 Objective Remarks GENERAL: Well-nourished, well-developed patient. SKIN: Warm and dry. HEAD: Normocephalic. EYES: No scleral icterus. No injection or drainage. NECK: Supple, trachea midline. No JVD or lymphadenopathy. LYMPHATIC: No adenopathy. CARDIOVASCULAR: Regular rate and rhythm without murmurs. RESPIRATORY: Breath sounds equal bilaterally. No accessory muscle use. GASTROINTESTINAL: Abdomen soft, non-tender, nondistended. EXTREMITIES: No cyanosis, or edema. MUSCULOSKELETAL: Adequate muscle tone. NEUROLOGICAL: No obvious focal deficit. Awake, alert, and oriented x3. PSYCHIATRIC: Appropriate mood and affect; insight and judgment normal. Assessment/Plan Assessment 1. History of breast cancer with positive BRCA mutation. She was treated in 2006. She was on tamoxifen for about 3 years. She did not follow up since then. She had bilateral mastectomy with bilateral salpingo-oophorectomy. She has no constitutional symptoms. There is no clear evidence of recurrent disease at this time. 2. Skull lesion noticed incidentally on CT scan of the head. She has a 15 mm lucent lesion in the right parietal bone at the high convexity. This could be a benign venous chew but cannot rule out metastatic disease. Clinically she has no symptoms. I think we can get a PET scan as an outpatient for further evaluation. 3. Nonspecific liver lesion. CT of the chest showed two low density lesions in the right hepatic lobe which are too small to characterize. Plan Plan: 1. She can be discharged from oncologic standpoint. Patient will call to set up follow up appointment at the oncology clinic at [facility] in [facility]. Can consider getting a PET scan outpatient for further evaluation. Adolfo Morrison MD May 16, 2017 08:14
[2017-05-16] MEDS: SODIUM CHLORIDE 0.9% FLUSH 10 ML FLUSH IV FLUSH SCH (09:00)
== END 2017-05-16 10:09 | disposition home or self-care (01) ==
LOC: NEPE 18:36 → NEDA 21:42 → NEPHCDU 05-15 01:03
PROVIDERS: ADMIT Hospitalist; ATTEND Hospitalist
DX: R55 Syncope and collapse (principal); J44.9 Chronic obstructive pulmonary disease, unspecified; R82.79 Other abnormal findings on microbiological examination of urine; R94.31 Abnormal electrocardiogram [ECG] [EKG]; N28.9 Disorder of kidney and ureter, unspecified; F17.210 Nicotine dependence, cigarettes, uncomplicated; Z85.3 Personal history of malignant neoplasm of breast; Z90.13 Acquired absence of bilateral breasts and nipples; Z98.82 Breast implant status
CPT/HCPCS: 70450; 71010; 71275; 80048; 80053; 81001; 82550; 83735; 84484; 85025; 85610; 85730; 87086; 87641; 93005; 96360; 99285; G0378; J7030; Q9967